=== PATIENT | female | born 1955 | race Caucasian/White ===

== ENCOUNTER 2016-11-28 10:05 | Emergency (ER) | payer MEDICARE, OTHER, MEDICAID ==
--- NOTE | 2016-11-28 10:19 | ED.REPORT ---
HPI-Altered Mental Status Date of Service Nov 28, 2016 ED Provider: Edward Feldman MD The patient is a 61 year old female w/ severe down-syndrome and a chronic history of seizures who presents to the ED with her sister due to altered mental status for the past week. Per the patient's sister, the patient has been crying and yelling constantly when she is not sleeping. For the past few months , she has had decreased speech, multiple ground level falls, and has been in "progressive decline." She has had a mild cold for a week accompanied by decreased fluid intake. Unable to obtain ROS due to pt's mental status. Nursing Notes Stated Complaint: ALTERED MENTAL STATUS Chief Complaint: Neuro Symptoms/ Deficits Nursing Notes Reviewed: Yes Allergies: Coded Allergies: No Known Allergies (Unverified Allergy, Unknown, 11/28/16) General Time Seen by MD: 10:19 Chief Complaint Other (alterered mental status) Hx Obtained From: [employer] St[employer] Operator (sister) Arrived By: Ambulance Sudden in Onset?: Yes Onset Occurred: 1 week ago Symptom Duration: Since onset Progression since Onset: Gradually worsening Past Medical History Past Medical History Phenotypic down syndrome chronic seizures Past Surgical History denies Social History Other Social History: Good social support Review of Systems Review of Systems Note: Unable to Obtain ROS Mental status Physical Exam Initial Vital Signs Vital Signs (First) Date Time Temp Pulse Resp B/P Pulse Ox O2 Delivery O2 Flow Rate FiO2 11/28/16 10:32 37.4 73 12 128/65 96 Room Air Initial VS: Reviewed Abdomen / GI: Soft, Non-tender, No guarding, No rebound Extremities: Vascular intact, No swelling General/Constitutional: Awake phenotypic down syndrome Head / Eyes: Atraumatic small head craniofacial membranes Neck: Atraumatic, Supple, Non-tender Respiratory / Chest: Atraumatic, No wheezing, No retractions Cardiovascular: Heart rate NL, Regular rhythm Neurologic: Reflexes equal bilat baseline down syndrome Mouth: Positive: Mucous membranes dry (d) Interpretation & Diagnostics Lab Results Interpretation Result Diagram: 11/28/16 1110 11/28/16 1110 Test 11/28/16 11:10 11/28/16 12:30 White Blood Count 7.2th/mm3 (3.8-10.1) Red Blood Count 4.05mil/mm3 (3.90-5.20) Hemoglobin 12.9g/dL (12.0-15.6) Hematocrit 40.4% (35.0-46.0) Mean Corpuscular Volume 99.8fL (81-100) Mean Corpuscular Hemoglobin 31.9pg (27.0-35.0) Mean Corpuscular Hemoglobin Concent 31.9% (32.0-37.0) Red Cell Distribution Width 14.6% (12.3-15.4) Platelet Count 259bil/L (150-400) Neutrophils (%) (Auto) 83.3% (40-74) Lymphocytes (%) (Auto) 9.2% (14-46) Monocytes (%) (Auto) 6.5% (4-12) Eosinophils (%) (Auto) 0.1% (0-5) Basophils (%) (Auto) 0.3% (0-3) Sodium Level 147mEq/L (134-144) Potassium Level 4.4mEq/L (3.5-5.2) Chloride Level 109mEq/L (97-108) Carbon Dioxide Level 24mmol/L (18-29) Blood Urea Nitrogen 17mg/dL (8-27) Creatinine 0.90mg/dL (0.57-1.00) Estimat Glomerular Filtration Rate 91mL/min (>59) Glucose Level 86mg/dL (60-99) Lactic Acid Level 2.0mmol/L (0.4-2.0) Calcium Level 9.4mg/dL (8.5-10.1) Total Bilirubin 0.5mg/dL (0.0-1.2) Aspartate Amino Transf (AST/SGOT) 33U/L (0-50) Alanine Aminotransferase (ALT/SGPT) 17U/L (0-32) Alkaline Phosphatase 70U/L (25-165) Total Protein 7.4g/dL (6.4-8.4) Albumin 3.5g/dL (3.4-5.0) Urine Color Yellow (YELLOW) Urine Appearance Clear (CLEAR,HAZY) Urine pH 5.0 (5.0-8.0) Urine Specific Walker 1.025 (1.003-1.035) Urine Protein Negativemg/dL (NEG,TRACE) Urine Glucose (UA) Negativemg/dL (NEGATIVE) Urine Ketones Negativemg/dL (NEGATIVE) Urine Occult Blood Trace (NEGATIVE) Urine Nitrite Negative (NEGATIVE) Urine Bilirubin Negative (NEGATIVE) Urine Urobilinogen Normalmg/dL (NORMAL) Urine Leukocyte Esterase Negative (NEGATIVE) Urine RBC 0-2/hpf (0-2) Urine WBC 0-5/hpf (0-5) Urine Epithelial Cells Few/hpf (NONE-MOD) Urine Crystals None seen (NONE SEEN) Urine Bacteria Few/hpf (NONE-FEW) Urine Hyaline Casts None/lpf (NONE) Urine Granular Casts None seen (NONE SEEN) Urine Waxy Casts None seen (NONE SEEN) Urine Red Blood Cell Casts None seen (NONE SEEN) Urine White Blood Cell Casts None seen (NONE SEEN) Urine Mucus Present (None Seen) Urine Trichomonas None seen (NONE SEEN) Urine Yeast None (NONE SEEN) Urinalysis Comment None X-Ray Chest Interpretation Chest Xray Interpretation: IMPRESSION: No acute cardiopulmonary disease. A nodular density in the right lower lung zone, probably caused by the nipple shadow. Recommend nipple markers on followup chest x-ray. Dictated by: Nadine Dejesus M.D. on 11/28/2016 at 12:02 Approved by: Nadine Dejesus M.D. on 11/28/2016 at 12:04 View: Portable Interpretation / Wet Read by: Interpret - Radiologist Re-Eval/Medical Decision Re-Evaluation/Progress : Time of Eval: 13:00 Re-Evaluation/Progress Note: Pt rechecked. Long discussion with her sister regarding possible hospice care and plan of treatment. She understands and agrees with plan. All questions addressed. Consultation : Call Returned at: 14:37 Note: Consult with [facility]. They agree to contact pt's family for further care and evaluation. Counseled Regarding: Diagnosis, Lab results, Need for follow-up, When/why to return to ED Patient Discharge & Departure Impression: Primary Impression: Altered mental status Altered mental status type: unspecified Qualified Code: R41.82 - Altered mental status, unspecified Disposition: Home Discharge Condition All VS Reviewed: Yes Condition: Stable Additional Instructions: There were no acute findings on Albertina's chest x-ray and her blood work is normal on the urine test is normal. I contacted hospice, and they will call you today or tomorrow. Hospice is a great way to access care at home. Follow up with her primary care physician as needed. Return to the Emergency Department for any new or worsening symptoms. We are always here to help. Referrals: Rivas Montero MD (PCP) Soren Attestation Portion of this note were transcribed by Nancy Dhillon. I, Dr. Feldman, personally performed the history, physical exam, and medical decision-making: I reviewed and confirmed the accuracy for the information in the transcribed note. Signed by: soren Andrade, 12/18/16 1500 copies to: Rivas Montero MD, Kirk H MD Nov 28, 2016 10:19 Nancy Dhillon Nov 28, 2016 12:17
[2016-11-28 10:32] VITALS: BP 128/65; PULSE 73; RESP 12; O2SAT 96
[2016-11-28] MEDS ORDERED: 0.9% Sodium Chloride 1,000 ML IV ONE (11:20)
[2016-11-28 11:30] LABS: BASOPHILS % (AUTO) 0.3 % (0-3); EOSINOPHILS % (AUTO) 0.1 % (0-5); MONOCYTES % (AUTO) 6.5 % (4-12); Mean Corpuscular Hemoglobin 31.9 pg (27.0-35.0); Mean Corpuscular Volume 99.8 fL (81-100); NEUTROPHILS % (AUTO) 83.3 % (40-74); Platelet Count 259 bil/L (150-400)
--- NOTE | 2016-11-28 12:05 | DRSVH ---
PROCEDURE: X-RAY CHEST ONE VIEW, PORTABLE ([id number]) INDICATIONS: altered mental status TECHNIQUE: One view of the chest was acquired. COMPARISON: [facility], , CHEST 1VW (PORTABLE), 12/08/2012, 9:13. FINDINGS: Surgical changes and devices: None. Lungs and pleura: There is a nodular density in the right lower lung zone. No pleural effusions or p neumothorax. Lungs are clear. Mediastinum: Mediastinal contours appear normal. Heart size is normal. Bones and chest wall: No suspicious bony lesions. Overlying soft tissues appear unremarkable. IMPRESSION: No acute cardiopulmonary disease. A nodular density in the right lower lung zone, probabl y caused by the nipple shadow. Recommend nipple markers on followup chest x-ray. Dictated by: Nadine Dejesus M.D. on 11/28/2016 at 12:02 Approved by: Nadine Dejesus M.D. on 11/28/2016 at 12:04
[2016-11-28 13:36] LABS: APPEARANCE,URINE CLEAR (CLEAR,HAZY); COLOR,URINE YELLOW (YELLOW); OCCULT BLOOD,URINE TRACE (NEGATIVE); UROBILINOGEN,URINE NORMAL (NORMAL)
[2016-11-28 14:59] VITALS: BP 127/78; PULSE 72; RESP 17; O2SAT 98
== END 2016-11-28 15:01 | disposition home or self-care (01) ==
LOC: EDBD 10:05 → SED 10:05
DX: R41.82 Altered mental status, unspecified (principal)
CPT/HCPCS: 36415; 71010; 80053; 81001; 83605; 85025; 96360; 99284; J7030